=== PATIENT | male | born 1940 | race Caucasian/White ===

== ENCOUNTER 2018-02-22 13:17 | Day surgery (SDC) | payer MEDICARE, BC ==
[~2018-02-22] VITALS: Ht 185.4 cm; Wt 79.5 kg
[2018-02-22] MEDS ORDERED: fentaNYL/PF 50MCG/1 ML 2ML syringe ONE (13:30)
[2018-02-22] MEDS ORDERED: LIDOcaine Viscous 15ml cup ONE (13:30)
[2018-02-22] MEDS ORDERED: MIDAZolam 5mg/5ml vial ONE (13:30)
[2018-02-22 13:50] VITALS: BP 166/3
[2018-02-22] MEDS ORDERED: ASPI-1265 PO (13:55)
[2018-02-22] MEDS ORDERED: [UNRECOGNIZED DRUG - OTHER] (13:55)
[2018-02-22] MEDS ORDERED: HYDR-3965 PO (13:55)
[2018-02-22] MEDS ORDERED: DIPH-522 (13:55)
[2018-02-22] MEDS ORDERED: vitamind3 PO (13:55)
[2018-02-22] MEDS ORDERED: PANT-47 PO (13:55)
[2018-02-22] MEDS ORDERED: METO-539 PO (13:55)
[2018-02-22] MEDS ORDERED: NITR0.4T51 SL (13:55)
[2018-02-22] MEDS ORDERED: LORA-512 PO (13:55)
[2018-02-22] MEDS ORDERED: prochlorperazine PO (13:55)
[2018-02-22] MEDS ORDERED: SAXA5TAB PO (13:55)
[2018-02-22] MEDS ORDERED: ATOR40TA PO (13:55)
[2018-02-22 14:22] VITALS: BP 140/71
[2018-02-22 14:32] VITALS: BP 137/68
[2018-02-22 14:42] VITALS: BP 133/67
== END 2018-02-22 15:03 | disposition home or self-care (01) ==
LOC: GI LAB 13:17
PROVIDERS: ATTEND Internal Medicine Gastroenterology
DX: R13.10 Dysphagia, unspecified (principal); I10 Essential (primary) hypertension; E78.5 Hyperlipidemia, unspecified; K21.9 Gastro-esophageal reflux disease without esophagitis; E11.9 Type 2 diabetes mellitus without complications; Z79.82 Long term (current) use of aspirin; Z95.1 Presence of aortocoronary bypass graft; Z87.891 Personal history of nicotine dependence; Z79.891 Long term (current) use of opiate analgesic; Z91.041 Radiographic dye allergy status; Z91.040 Latex allergy status; Z87.820 Personal history of traumatic brain injury; Z85.828 Personal history of other malignant neoplasm of skin; Z98.890 Other specified postprocedural states; Z79.899 Other long term (current) drug therapy
CPT/HCPCS: 43235; J2250; J3010; J7030; A4620; G0500

== ENCOUNTER 2023-03-15 06:10 | Day surgery (SDC) | payer MEDICARE, BC ==
[2023-03-15] VITALS (10 sets, daily range): BP systolic 127–190; BP diastolic 62–87; PULSE 15–63; RESP 12–16; TEMP 98; O2SAT 94–97
[~2023-03-15] VITALS: Ht 185.4 cm; Wt 76.4 kg
[~2023-03-15 06:10] MED LIST: ASPI-1265 PO; ATOR40TA PO; DIPH-522; HYDR-3965 PO; LORA-512 PO; METO-539 PO; NITR0.4T51 SL; PANT-47 PO; SAXA5TAB PO; [UNRECOGNIZED DRUG - OTHER]; prochlorperazine PO; vitamind3 PO
[2023-03-15] MEDS ORDERED: diphenhydrAMINE 25mg capsule PO PRN (06:35)
[2023-03-15] MEDS ORDERED: sodium bicarbonate 1meq/ml syr 150 ML in dextrose 5%-water 1,000 ML IV SCH (06:45)
[2023-03-15] MEDS ORDERED: OXYB5TAB16 PO (06:49)
[2023-03-15] MEDS ORDERED: FLO0.4C PO (06:49)
[2023-03-15] MEDS ORDERED: PRIM50TA5 PO (06:49)
[2023-03-15] MEDS ORDERED: CARV3.123 PO (06:49)
[2023-03-15] MEDS ORDERED: METF-1203 PO (06:49)
[2023-03-15] MEDS ORDERED: BUPR-317 PO (06:49)
[2023-03-15 07:29] LABS: BASOPHILS # (AUTO) 0.1 X10'3 (0-0.2); BASOPHILS % (AUTO) 1.8 % (0-1); EOSINOPHILS # (AUTO) 0.3 X10'3 (0-0.9); EOSINOPHILS % (AUTO) 4.6 % (0-6); HEMATOCRIT 37.4 % (42.0-52.0); HEMOGLOBIN 12.3 g/dl (14.0-17.9); LYMPHOCYTES # (AUTO) 1.3 X10'3 (1.1-4.8); LYMPHOCYTES % (AUTO) 20.4 % (21-51); MEAN CORPUSCULAR HEMOGLOBIN 32.2 PG (27.0-31.0); MEAN CORPUSCULAR VOLUME 97.4 FL (78-98); MEAN PLATELET VOLUME 9.9 FL (7.4-10.4); MONOCYTES # (AUTO) 0.5 X10'3 (0-0.9); MONOCYTES % (AUTO) 8.7 % (2-12); NEUTROPHILS % (AUTO) 64.5 % (42-75); PLATELET COUNT 180 X10'3 (140-440); RED BLOOD COUNT 3.84 X10'6 (4.70-6.10); RED CELL DISTRIBUTION WIDTH 13.8 % (11.5-14.5); WHITE BLOOD COUNT 6.2 X10'3 (4.5-11.0)
[2023-03-15 07:34] LABS: ALBUMIN 3.2 G/DL (3.4-5.0); ANION GAP 10 (8-16); BLOOD UREA NITROGEN 14 MG/DL (7-18); BUN/CREATININE RATIO 12.1 (10.0-20.0); CALCIUM 8.5 MG/DL (8.5-10.1); CHLORIDE 105 MMOL/L (99-107); CREATININE 1.16 MG/DL (0.60-1.10); GLUCOSE 124 MG/DL (70-104); MAGNESIUM 1.5 MG/DL (1.5-2.4); POTASSIUM 4.3 MMOL/L (3.5-5.1); SODIUM 139 MMOL/L (135-145); TOTAL CARBON DIOXIDE 24.1 MMOL/L (24-32); eGFR 60 ML/MIN
[2023-03-15] MEDS ORDERED: methylPREDNISolone sod succ/PF 40mg inj. IV ONE (07:40)
[2023-03-15] MEDS ORDERED: nitroGLYCERIN-Tridil 50MG/D5W 0 ML IV ONE (08:30)
[2023-03-15] MEDS ORDERED: iohexol 350MG/ML 100ml bottle IV ONE ×2 (08:31→09:36)
[2023-03-15] MEDS ORDERED: fentaNYL/PF 50MCG/1 ML 2ML syringe ONE (08:31)
[2023-03-15] MEDS ORDERED: verapamil 2.5 mg/ml inj IV ONE (08:31)
[2023-03-15] MEDS ORDERED: iohexol 350 MG/ML 50ML vial IV ONE (08:31)
[2023-03-15] MEDS ORDERED: LIDOcaine 1% 30ml preserv. free vial ONE (08:31)
[2023-03-15] MEDS ORDERED: midazolam 1 mg/ML 2ml injection ONE (08:31)
[2023-03-15] MEDS ORDERED: heparin 1,000unit/ml 10ml vial 10 ML ONE (08:31)
[2023-03-15] MEDS ORDERED: OXAZEpam 15mg capsule PO PRN (10:35)
[2023-03-15] MEDS ORDERED: ondansetron/PF 4mg/2ml inj IV PRN (10:35)
[2023-03-15] MEDS ORDERED: HYDROcodone/acetaminophen 10/325mg tab PO PRN (10:35)
[2023-03-15] MEDS ORDERED: HYDROcodone/acetaminophen 5mg/325mg tablet PO PRN (10:35)
[2023-03-15] MEDS ORDERED: proCHLORperazine 10 MG/2 ml inj IV PRN (10:35)
[2023-03-15] MEDS ORDERED: normal saline 1000ml 1,000 ML IV SCH (10:35)
== END 2023-03-15 13:30 | disposition home or self-care (01) ==
LOC: SSTAY O 06:10
PROVIDERS: ATTEND Internal Medicine Cardiovascular Disease
DX: I25.119 Atherosclerotic heart disease of native coronary artery with unspecified angina pectoris (principal); E78.5 Hyperlipidemia, unspecified; I10 Essential (primary) hypertension; E11.9 Type 2 diabetes mellitus without complications; Z95.1 Presence of aortocoronary bypass graft; Z87.891 Personal history of nicotine dependence; Z79.84 Long term (current) use of oral hypoglycemic drugs; Z79.82 Long term (current) use of aspirin; Z79.899 Other long term (current) drug therapy
CPT/HCPCS: 36415; 80048; 82948; 83735; 85025; 85610; 93005; 93459; 99152; 99153; J1644; J2250; J2920; J3010; J3490; J7030; Q0163; Q9967; A6258; C1760; C1769; C1894